=== PATIENT | male | born 1950 | race African-American/Black ===

== ENCOUNTER 2017-08-09 16:04 | Emergency (ER) | payer MEDICARE, OTHER ==
[~2017-08-09] VITALS: Ht 180.3 cm; Wt 80.0 kg
[2017-08-09 16:10] VITALS: BP 162/87
[2017-08-09 17:46] LABS: BASOPHILS # (AUTO) 0.02 x10^3/uL (0-0.1); BASOPHILS % (AUTO) 0 % (0-1); EOSINOPHILS # (AUTO) 0.08 x10^3/uL (0-0.4); EOSINOPHILS % (AUTO) 1 % (1-7); LYMPHOCYTES # (AUTO) 1.95 x10^3/uL (1-3.4); LYMPHOCYTES % (AUTO) 33 % (22-44); MD NO; MEAN CORPUSCULAR HEMOGLOBIN 33.2 pg (27.5-34.5); MEAN CORPUSCULAR VOLUME 97.5 fL (81-97); MEAN PLATELET VOLUME 7.6 fL (7.4-10.4); MONOCYTES # (AUTO) 0.47 x10^3/uL (0.2-0.8); MONOCYTES % (AUTO) 8 % (2-9); NEUTROPHILS # (AUTO) 3.36 x10^3/uL (1.8-6.8); NEUTROPHILS % (AUTO) 57 % (42-75); PLATELET COUNT 213 x10^3/uL (130-400); RED BLOOD COUNT 4.08 x10^6/uL (4.38-5.82); RED CELL DISTRIBUTION WIDTH 13.3 % (9.4-14.8)
[2017-08-09 17:58] LABS: ALBUMIN 3.3 g/dL (3.4-5.0); ANION GAP 6 mmol/L (5-15); CALCIUM 8.6 mg/dL (8.5-10.1); CHLORIDE 108 mmol/L (98-107); CREATININE 1.14 mg/dL (0.7-1.3)
[2017-08-09 18:01] LABS: TROPONIN I < 0.015 ng/mL (0.000-0.045)
== END 2017-08-09 19:09 | disposition home or self-care (01) ==
LOC: ED 19:00
DX: S01.111A Laceration without foreign body of right eyelid and periocular area, initial encounter (principal); I10 Essential (primary) hypertension; G89.29 Other chronic pain; M54.9 Dorsalgia, unspecified; W05.0XXA Fall from non-moving wheelchair, initial encounter; Y93.89 Activity, other specified; Y92.89 Other specified places as the place of occurrence of the external cause; Y99.8 Other external cause status
CPT/HCPCS: 36415; 70450; 71045; 80048; 82040; 84484; 85025; 93005; 99285

== ENCOUNTER 2017-11-03 10:46 | Emergency (ER) | payer MEDICAID, OTHER ==
[~2017-11-03] VITALS: Ht 180.3 cm; Wt 91.9 kg
[2017-11-03 10:47] VITALS: BP 133/77
[2017-11-03] MEDS ORDERED: PROPARACAINE OPHTH 0.5%, 15ML ONE (11:09)
[2017-11-03] MEDS ORDERED: FLUORESCEIN OPHTHALMIC 1 MG STRIP ONE (11:09)
== END 2017-11-03 11:37 ==
LOC: ED 11:31
DX: H10.213 Acute toxic conjunctivitis, bilateral (principal); G89.29 Other chronic pain
CPT/HCPCS: 99283

== ENCOUNTER 2017-12-22 13:04 | Emergency (ER) | payer MEDICARE, OTHER ==
[~2017-12-22] VITALS: Ht 180.3 cm; Wt 89.0 kg
[2017-12-22] MEDS ORDERED: ASPIRIN 81 MG TABLET CHEW PO ONE (13:30)
[2017-12-22] MEDS ORDERED: PLEASE ENTER HEIGHT AND WEIGHT MC SCH (13:30)
[2017-12-22] MEDS ORDERED: AMLO10TA2 PO (13:34)
[2017-12-22] MEDS ORDERED: CYCL5TAB PO (13:34)
[2017-12-22] MEDS ORDERED: GABA600T2 PO (13:34)
[2017-12-22] MEDS ORDERED: ATEN25TA PO (13:34)
[2017-12-22 13:35] LABS: BASOPHILS # (AUTO) 0.02 x10^3/uL (0-0.1); BASOPHILS % (AUTO) 1 % (0-1); EOSINOPHILS # (AUTO) 0.14 x10^3/uL (0-0.4); EOSINOPHILS % (AUTO) 3 % (1-7); LYMPHOCYTES # (AUTO) 1.64 x10^3/uL (1-3.4); LYMPHOCYTES % (AUTO) 34 % (22-44); MD NO; MEAN CORPUSCULAR HEMOGLOBIN 33.4 pg (27.5-34.5); MEAN CORPUSCULAR HGB CONC 34.5 g/dL (33.2-36.2); MEAN CORPUSCULAR VOLUME 96.9 fL (81-97); MONOCYTES # (AUTO) 0.41 x10^3/uL (0.2-0.8); MONOCYTES % (AUTO) 9 % (2-9); NEUTROPHILS # (AUTO) 2.66 x10^3/uL (1.8-6.8); NEUTROPHILS % (AUTO) 55 % (42-75); PLATELET COUNT 252 x10^3/uL (130-400); RED BLOOD COUNT 4.16 x10^6/uL (4.38-5.82); RED CELL DISTRIBUTION WIDTH 13.6 % (9.4-14.8)
[2017-12-22] MEDS ORDERED: ASPIRIN 81 MG TABLET CHEW ONE (13:35)
[2017-12-22 13:44] LABS: ALANINE AMINOTRANSFERASE 37 U/L (12-78); ALBUMIN 3.5 g/dL (3.4-5.0); ANION GAP 6 mmol/L (5-15); CALCIUM 8.2 mg/dL (8.5-10.1); CHLORIDE 111 mmol/L (98-107); CREATININE 1.07 mg/dL (0.7-1.3)
[2017-12-22 13:48] LABS: ALKALINE PHOSPHATASE 98 U/L (45-117); BILIRUBIN,TOTAL 0.3 mg/dL (0.2-1.0); TOTAL PROTEIN 7.3 g/dL (6.4-8.2); TROPONIN I < 0.015 ng/mL (0.000-0.045)
[2017-12-22 13:59] LABS: FREE T4 (FREE THYROXINE) 0.95 ng/dL (0.76-1.46); THYROID STIMULATING HORMONE 1.1 mIU/L (0.358-3.740)
[2017-12-22 14:02] LABS: CULTURE INDICATED? YES; MICROSCOPIC AUTO
[2017-12-22 14:38] VITALS: BP 129/86
== END 2017-12-22 15:01 | disposition home or self-care (01) ==
LOC: ED 14:55
DX: N30.01 Acute cystitis with hematuria (principal); R06.00 Dyspnea, unspecified; R53.1 Weakness; I10 Essential (primary) hypertension
CPT/HCPCS: 36415; 71045; 80053; 81001; 83880; 84439; 84443; 84484; 85025; 87086; 93005; 99285

== ENCOUNTER 2018-02-05 13:27 | Emergency (ER) | payer MEDICARE, MEDICAID ==
[~2018-02-05] VITALS: Ht 180.3 cm; Wt 90.0 kg
[~2018-02-05 13:27] MED LIST: AMLO10TA2 PO; ATEN25TA PO; CYCL5TAB PO; GABA600T2 PO
[2018-02-05] MEDS ORDERED: HYDROcodone/APAP 5/325 TABLET ONE ×2 (13:39→15:15)
[2018-02-05] MEDS ORDERED: HYDROcodone/APAP 5/325 TABLET PO ONE ×2 (14:00→15:30)
[2018-02-05 15:18] VITALS: BP 133/82
== END 2018-02-05 15:36 | disposition home or self-care (01) ==
LOC: ED 14:43
DX: S16.1XXA Strain of muscle, fascia and tendon at neck level, initial encounter (principal); S39.012A Strain of muscle, fascia and tendon of lower back, initial encounter; M48.061 Spinal stenosis, lumbar region without neurogenic claudication; M51.36 Other intervertebral disc degeneration, lumbar region; M47.9 Spondylosis, unspecified; G89.11 Acute pain due to trauma; W19.XXXA Unspecified fall, initial encounter; Y93.89 Activity, other specified; Y99.8 Other external cause status; Y92.89 Other specified places as the place of occurrence of the external cause
CPT/HCPCS: 72110; 72125; 99284

== ENCOUNTER 2018-04-03 12:51 | Inpatient (IN) | payer MEDICARE, MEDICAID ==
[~2018-04-03] VITALS: Ht 177.8 cm; Wt 94.4 kg
[~2018-04-03 12:51] MED LIST changes: -AMLO10TA2 PO; +AMLO10TA6 PO
[2018-04-03 13:54] LABS: BASOPHILS # (AUTO) 0.03 x10^3/uL (0-0.1); BASOPHILS % (AUTO) 1 % (0-1); EOSINOPHILS % (AUTO) 2 % (1-7); LYMPHOCYTES # (AUTO) 1.79 x10^3/uL (1-3.4); LYMPHOCYTES % (AUTO) 38 % (22-44); MD NO; MEAN CORPUSCULAR HEMOGLOBIN 33.2 pg (27.5-34.5); MEAN CORPUSCULAR HGB CONC 34.4 g/dL (33.2-36.2); MEAN CORPUSCULAR VOLUME 96.6 fL (81-97); MEAN PLATELET VOLUME 8.2 fL (7.4-10.4); MONOCYTES # (AUTO) 0.43 x10^3/uL (0.2-0.8); MONOCYTES % (AUTO) 9 % (2-9); NEUTROPHILS # (AUTO) 2.37 x10^3/uL (1.8-6.8); NEUTROPHILS % (AUTO) 50 % (42-75); PLATELET COUNT 229 x10^3/uL (130-400); RED BLOOD COUNT 4.11 x10^6/uL (4.38-5.82); RED CELL DISTRIBUTION WIDTH 13.5 % (9.4-14.8)
[2018-04-03 14:03] LABS: INTERNATIONAL NORMALIZED RATIO 1.23 (0.93-1.1); PROTHROMBIN TIME 12.7 Seconds (9.6-11.5)
[2018-04-03 14:41] LABS: CALCIUM 8.3 mg/dL (8.5-10.1); CHLORIDE 110 mmol/L (98-107)
[2018-04-03 14:45] LABS: ALANINE AMINOTRANSFERASE 32 U/L (12-78); ALBUMIN 3.2 g/dL (3.4-5.0); ANION GAP 6 mmol/L (5-15); CREATININE 1.05 mg/dL (0.7-1.3)
[2018-04-03] MEDS ORDERED: ACETAMINOPHEN 500 MG TABLET ONE (14:48)
[2018-04-03 14:49] LABS: ALKALINE PHOSPHATASE 98 U/L (45-117); BILIRUBIN,TOTAL 0.4 mg/dL (0.2-1.0); TROPONIN I < 0.015 ng/mL (0.000-0.045)
[2018-04-03] MEDS ORDERED: ACETAMINOPHEN 500 MG TABLET PO ONE (15:00)
[2018-04-03] MEDS ORDERED: CLOPIDOGREL 75 MG TABLET ONE (15:14)
[2018-04-03 15:19] LABS: CULTURE INDICATED? YES; MICROSCOPIC INDICATED
[2018-04-03] MEDS ORDERED: ACETAMINOPHEN 325 MG TABLET PO PRN (15:30)
[2018-04-03] MEDS ORDERED: CLOPIDOGREL 75 MG TABLET PO ONE (15:30)
[2018-04-03] MEDS ORDERED: NITROGLYCERIN 0.4 MG BOTTLE (25 TABS) SL PRN (15:30)
[2018-04-03] MEDS ORDERED: ENALAPRILAT 1.25 MG/ML, 2ML IVPush PRN (15:30)
[2018-04-03] MEDS ORDERED: CEFTRIAXONE 1,000 MG in DEXTROSE 5% 50 ML IV SCH (16:00)
[2018-04-03 16:19] LABS: CHOLESTEROL, TOTAL 184 mg/dL (140-239); TRIGLYCERIDES 118 mg/dL (50-200); VLDL CHOLESTEROL 24 mg/dL (0-25)
[2018-04-03 16:22] LABS: CHOL/HDL RATIO 4.4; HDL CHOL % 23 % (26-37); HDL CHOLESTEROL (DIRECT) 42 mg/dL (40-60); LDL CHOLESTEROL,CALCULATED 118 mg/dL (54-169); LDL/HDL RATIO 2.8 (0.5-3.0); TROPONIN I < 0.015 ng/mL (0.000-0.045)
[2018-04-03 16:23] VITALS: BP 145/91
[2018-04-03] MEDS: ENOXAPARIN 40 MG/0.4 ML SQ SCH (17:03)
[2018-04-03] MEDS: LIDODERM 5% PATCH TD PRN ×2 (17:07→20:48)
[2018-04-03 17:50] LABS: FOLATE LEVEL 19.2 ng/mL (3.1-17.5)
[2018-04-03 20:00] VITALS: BP 160/84
[2018-04-03] MEDS: ATENOLOL 25 MG TABLET PO SCH (20:48)
[2018-04-03] MEDS: FAMOTIDINE 20 MG TABLET PO SCH (20:48)
[2018-04-03 21:28] LABS: TROPONIN I < 0.015 ng/mL (0.000-0.045)
[2018-04-04 02:00] VITALS: BP 146/80
[2018-04-04] MEDS: ASPIRIN 325 MG TABLET EC PO SCH (05:46)
[2018-04-04 05:56] LABS: BASOPHILS # (AUTO) 0.03 x10^3/uL (0-0.1); BASOPHILS % (AUTO) 1 % (0-1); EOSINOPHILS # (AUTO) 0.08 x10^3/uL (0-0.4); EOSINOPHILS % (AUTO) 2 % (1-7); LYMPHOCYTES # (AUTO) 1.75 x10^3/uL (1-3.4); LYMPHOCYTES % (AUTO) 39 % (22-44); MD NO; MEAN CORPUSCULAR HEMOGLOBIN 33.2 pg (27.5-34.5); MEAN CORPUSCULAR HGB CONC 34.1 g/dL (33.2-36.2); MEAN CORPUSCULAR VOLUME 97.3 fL (81-97); MEAN PLATELET VOLUME 8.4 fL (7.4-10.4); MONOCYTES # (AUTO) 0.49 x10^3/uL (0.2-0.8); MONOCYTES % (AUTO) 11 % (2-9); NEUTROPHILS # (AUTO) 2.18 x10^3/uL (1.8-6.8); NEUTROPHILS % (AUTO) 48 % (42-75); PLATELET COUNT 230 x10^3/uL (130-400); RED CELL DISTRIBUTION WIDTH 13.1 % (9.4-14.8)
[2018-04-04 06:10] LABS: CHLORIDE 110 mmol/L (98-107)
[2018-04-04 06:16] LABS: ANION GAP 6 mmol/L (5-15); CALCIUM 8.3 mg/dL (8.5-10.1); CREATININE 1.13 mg/dL (0.7-1.3)
[2018-04-04 07:32] VITALS: BP 137/68
[2018-04-04] MEDS: CALCIUM CITRATE 950 MG TABLET PO SCH (08:17)
[2018-04-04] MEDS: AMLODIPINE 10 MG TAB PO SCH (08:17)
[2018-04-04] MEDS: MULTIVITAMIN 1 TABLET PO SCH (08:17)
[2018-04-04] MEDS: FAMOTIDINE 20 MG TABLET PO SCH ×2 (08:17→20:52)
[2018-04-04] MEDS: ATENOLOL 25 MG TABLET PO SCH ×2 (10:36→20:52)
[2018-04-04] MEDS: LIDODERM 5% PATCH TD PRN ×2 (10:39→22:19)
[2018-04-04] MEDS ORDERED: POTASSIUM CHLORIDE 20 MEQ TAB.ER.PRT PO ONE (12:30)
[2018-04-04] MEDS ORDERED: IRON DEXTRAN IV PER PHARMACY IV PRN (12:30)
[2018-04-04] MEDS ORDERED: IRON SUCROSE COMPLEX 100MG/5ML IV ONE (12:30)
[2018-04-04 12:47] VITALS: BP 135/81
[2018-04-04] MEDS ORDERED: POLYETHYLENE GLYCOL 17 GM PACKET NG ONE (13:30)
[2018-04-04] MEDS: ENOXAPARIN 40 MG/0.4 ML SQ SCH (17:20)
[2018-04-04] MEDS ORDERED: CEFTRIAXONE 1,000 MG in SODIUM CHLORIDE 0.9% 50 ML IV SCH (19:00)
[2018-04-04 20:00] VITALS: BP 146/79
[2018-04-05 02:00] VITALS: BP 126/76
[2018-04-05] MEDS: ASPIRIN 325 MG TABLET EC PO SCH (06:13)
[2018-04-05 06:26] LABS: BASOPHILS # (AUTO) 0.03 x10^3/uL (0-0.1); BASOPHILS % (AUTO) 1 % (0-1); EOSINOPHILS % (AUTO) 2 % (1-7); LYMPHOCYTES # (AUTO) 1.89 x10^3/uL (1-3.4); LYMPHOCYTES % (AUTO) 34 % (22-44); MD NO; MEAN CORPUSCULAR HEMOGLOBIN 33.6 pg (27.5-34.5); MEAN CORPUSCULAR HGB CONC 34.5 g/dL (33.2-36.2); MEAN CORPUSCULAR VOLUME 97.3 fL (81-97); MEAN PLATELET VOLUME 8.4 fL (7.4-10.4); MONOCYTES # (AUTO) 0.66 x10^3/uL (0.2-0.8); MONOCYTES % (AUTO) 12 % (2-9); NEUTROPHILS # (AUTO) 2.88 x10^3/uL (1.8-6.8); NEUTROPHILS % (AUTO) 52 % (42-75); PLATELET COUNT 230 x10^3/uL (130-400); RED BLOOD COUNT 4.29 x10^6/uL (4.38-5.82); RED CELL DISTRIBUTION WIDTH 13.4 % (9.4-14.8)
[2018-04-05 06:31] LABS: ANION GAP 6 mmol/L (5-15); CALCIUM 8.5 mg/dL (8.5-10.1); CHLORIDE 111 mmol/L (98-107); CREATININE 1.13 mg/dL (0.7-1.3)
[2018-04-05 07:00] VITALS: BP 131/78
[2018-04-05] MEDS ORDERED: FERROUS SULFATE 325 MG TABLET PO SCH (08:00)
[2018-04-05] MEDS ORDERED: LIDO700A20 TD (08:09)
[2018-04-05] MEDS ORDERED: CIPR500T87 PO (08:09)
[2018-04-05] MEDS ORDERED: MULT-484 PO (08:09)
[2018-04-05] MEDS: AMLODIPINE 10 MG TAB PO SCH (08:23)
[2018-04-05] MEDS: MULTIVITAMIN 1 TABLET PO SCH (08:23)
[2018-04-05] MEDS: FAMOTIDINE 20 MG TABLET PO SCH (08:23)
[2018-04-05] MEDS: CALCIUM CITRATE 950 MG TABLET PO SCH (08:23)
[2018-04-05] MEDS: ATENOLOL 25 MG TABLET PO SCH (08:24)
== END 2018-04-05 11:51 | disposition home or self-care (01) | DRG 206 ==
LOC: ED 13:10 → INTOOBSV 15:08 → EDIP 15:08 → OBSVTOIN 15:08 → 5SO 16:04 → DCLOUNGE 04-05 11:23
PROVIDERS: ADMIT Hospitalist; ATTEND Hospitalist
DX: M94.0 Chondrocostal junction syndrome [Tietze] (principal); N39.0 Urinary tract infection, site not specified; D50.9 Iron deficiency anemia, unspecified; M54.9 Dorsalgia, unspecified; R82.71 Bacteriuria; G89.29 Other chronic pain; R74.0 Nonspecific elevation of levels of transaminase and lactic acid dehydrogenase [LDH]; E83.51 Hypocalcemia; E87.6 Hypokalemia; I10 Essential (primary) hypertension; Z80.8 Family history of malignant neoplasm of other organs or systems; Z87.440 Personal history of urinary (tract) infections; Z88.0 Allergy status to penicillin; Z88.8 Allergy status to other drugs, medicaments and biological substances; R32 Unspecified urinary incontinence
CPT/HCPCS: 36415; 71045; 80048; 80053; 80061; 81001; 82607; 82746; 83036; 83540; 83550; 83690; 83735; 84100; 84484; 85025; 85610; 85730; 87040; 87086; 93005; 93306; 99285; G0378; J0696; J1650; J1756

== ENCOUNTER 2018-04-11 16:41 | Emergency (ER) | payer MEDICARE, MEDICAID ==
[~2018-04-11] VITALS: Ht 177.8 cm; Wt 86.4 kg
[~2018-04-11 16:41] MED LIST changes: +CIPR500T87 PO; +LIDO700A20 TD; +MULT-484 PO
[2018-04-11] MEDS ORDERED: ASPIRIN 81 MG TABLET CHEW ONE (17:09)
[2018-04-11] MEDS ORDERED: ASPIRIN 81 MG TABLET CHEW PO ONE (17:30)
[2018-04-11 17:48] LABS: ALBUMIN 3.5 g/dL (3.4-5.0); CALCIUM 8.5 mg/dL (8.5-10.1); CREATININE 1.26 mg/dL (0.7-1.3)
[2018-04-11 17:53] LABS: TROPONIN I < 0.015 ng/mL (0.000-0.045)
[2018-04-11 17:56] LABS: ANION GAP 7 mmol/L (5-15); CHLORIDE 112 mmol/L (98-107)
[2018-04-11 18:08] LABS: BASOPHILS # (AUTO) 0.03 x10^3/uL (0-0.1); BASOPHILS % (AUTO) 1 % (0-1); EOSINOPHILS # (AUTO) 0.07 x10^3/uL (0-0.4); EOSINOPHILS % (AUTO) 1 % (1-7); LYMPHOCYTES # (AUTO) 1.84 x10^3/uL (1-3.4); LYMPHOCYTES % (AUTO) 32 % (22-44); MD NO; MEAN CORPUSCULAR HEMOGLOBIN 33.9 pg (27.5-34.5); MEAN CORPUSCULAR HGB CONC 34.6 g/dL (33.2-36.2); MEAN CORPUSCULAR VOLUME 97.8 fL (81-97); MEAN PLATELET VOLUME 8.6 fL (7.4-10.4); MONOCYTES % (AUTO) 12 % (2-9); NEUTROPHILS # (AUTO) 3.11 x10^3/uL (1.8-6.8); NEUTROPHILS % (AUTO) 54 % (42-75); PLATELET COUNT 245 x10^3/uL (130-400); RED BLOOD COUNT 4.09 x10^6/uL (4.38-5.82); RED CELL DISTRIBUTION WIDTH 13.1 % (9.4-14.8)
[2018-04-11] MEDS ORDERED: ACETAMINOPHEN 325 MG TABLET PO ONE (18:30)
[2018-04-11] MEDS ORDERED: ACETAMINOPHEN 325 MG TABLET ONE (18:47)
[2018-04-11] MEDS ORDERED: LIDODERM 5% PATCH TD ONE (20:00)
[2018-04-11] MEDS ORDERED: OMNIPAQUE 350 MG/ML, 100ML BOTTLE ONE (20:45)
[2018-04-11 20:54] VITALS: BP 146/82
[2018-04-11 21:12] LABS: TROPONIN I < 0.015 ng/mL (0.000-0.045)
== END 2018-04-11 21:50 | disposition home or self-care (01) ==
LOC: ED 20:49
DX: G89.29 Other chronic pain (principal); R07.89 Other chest pain; M54.5 Low back pain; I10 Essential (primary) hypertension
CPT/HCPCS: 36415; 71046; 71275; 80048; 82040; 83880; 84484; 85025; 85379; 93005; 99285; Q9967

== ENCOUNTER 2018-04-20 15:36 | Emergency (ER) | payer MEDICAID, MEDICARE ==
[~2018-04-20] VITALS: Ht 177.8 cm; Wt 93.6 kg
[2018-04-20 15:41] VITALS: BP 149/83
[2018-04-20] MEDS ORDERED: ALBUTEROL/IPRATROPIUM 2.5MG/0.5MG, 3 ML NPPB SCH (16:00)
[2018-04-20 16:31] LABS: BASOPHILS % (AUTO) 0 % (0-1); EOSINOPHILS # (AUTO) 0.07 x10^3/uL (0-0.4); EOSINOPHILS % (AUTO) 1 % (1-7); LYMPHOCYTES # (AUTO) 0.63 x10^3/uL (1-3.4); LYMPHOCYTES % (AUTO) 9 % (22-44); MD NO; MEAN CORPUSCULAR HEMOGLOBIN 33.7 pg (27.5-34.5); MEAN CORPUSCULAR HGB CONC 34.8 g/dL (33.2-36.2); MEAN CORPUSCULAR VOLUME 96.9 fL (81-97); MEAN PLATELET VOLUME 8.1 fL (7.4-10.4); MONOCYTES # (AUTO) 0.57 x10^3/uL (0.2-0.8); MONOCYTES % (AUTO) 8 % (2-9); NEUTROPHILS # (AUTO) 5.66 x10^3/uL (1.8-6.8); NEUTROPHILS % (AUTO) 82 % (42-75); PLATELET COUNT 268 x10^3/uL (130-400); RED BLOOD COUNT 4.14 x10^6/uL (4.38-5.82); RED CELL DISTRIBUTION WIDTH 13.6 % (9.4-14.8)
[2018-04-20 16:37] LABS: ALANINE AMINOTRANSFERASE 36 U/L (12-78); ALBUMIN 3.5 g/dL (3.4-5.0); ANION GAP 6 mmol/L (5-15); CALCIUM 8.6 mg/dL (8.5-10.1); CHLORIDE 110 mmol/L (98-107); CREATININE 1.29 mg/dL (0.7-1.3)
[2018-04-20 16:42] LABS: ALKALINE PHOSPHATASE 99 U/L (45-117); BILIRUBIN,TOTAL 0.5 mg/dL (0.2-1.0); TOTAL PROTEIN 7.4 g/dL (6.4-8.2); TROPONIN I < 0.015 ng/mL (0.000-0.045)
[2018-04-20] MEDS ORDERED: ALBUTEROL/IPRATROPIUM 2.5MG/0.5MG, 3 ML ONE ×2 (16:48)
[2018-04-20] MEDS ORDERED: HYDROcodone/APAP 5/325 TABLET ONE (17:08)
[2018-04-20] MEDS ORDERED: HYDROcodone/APAP 5/325 TABLET PO ONE (17:30)
== END 2018-04-20 17:50 | disposition home or self-care (01) ==
LOC: ED 17:44
DX: J45.909 Unspecified asthma, uncomplicated (principal); E78.00 Pure hypercholesterolemia, unspecified; I10 Essential (primary) hypertension; G89.29 Other chronic pain
CPT/HCPCS: 36415; 71046; 80053; 83880; 84484; 85025; 93005; 94640; 99285

== ENCOUNTER 2018-04-24 18:50 | Emergency (ER) | payer MEDICAID, MEDICARE ==
[~2018-04-24] VITALS: Ht 177.8 cm; Wt 89.1 kg
[2018-04-24 19:51] LABS: BASOPHILS # (AUTO) 0.02 x10^3/uL (0-0.1); BASOPHILS % (AUTO) 1 % (0-1); EOSINOPHILS # (AUTO) 0.08 x10^3/uL (0-0.4); EOSINOPHILS % (AUTO) 2 % (1-7); LYMPHOCYTES # (AUTO) 1.96 x10^3/uL (1-3.4); LYMPHOCYTES % (AUTO) 39 % (22-44); MD NO; MEAN CORPUSCULAR HEMOGLOBIN 33.6 pg (27.5-34.5); MEAN CORPUSCULAR HGB CONC 34.3 g/dL (33.2-36.2); MEAN CORPUSCULAR VOLUME 97.9 fL (81-97); MEAN PLATELET VOLUME 7.7 fL (7.4-10.4); MONOCYTES # (AUTO) 0.59 x10^3/uL (0.2-0.8); MONOCYTES % (AUTO) 12 % (2-9); NEUTROPHILS # (AUTO) 2.36 x10^3/uL (1.8-6.8); NEUTROPHILS % (AUTO) 47 % (42-75); PLATELET COUNT 267 x10^3/uL (130-400); RED BLOOD COUNT 3.79 x10^6/uL (4.38-5.82); RED CELL DISTRIBUTION WIDTH 13.4 % (9.4-14.8)
[2018-04-24 19:56] LABS: ALBUMIN 3.2 g/dL (3.4-5.0); ANION GAP 8 mmol/L (5-15); CALCIUM 8.2 mg/dL (8.5-10.1); CHLORIDE 111 mmol/L (98-107); CREATININE 1.21 mg/dL (0.7-1.3)
[2018-04-24 19:59] LABS: TROPONIN I < 0.015 ng/mL (0.000-0.045)
[2018-04-24 20:05] VITALS: BP 153/92
[2018-04-24] MEDS ORDERED: ACETAMINOPHEN 500 MG TABLET ONE (20:52)
[2018-04-24] MEDS ORDERED: ACETAMINOPHEN 500 MG TABLET PO ONE (21:00)
== END 2018-04-24 21:03 | disposition home or self-care (01) ==
LOC: ED 20:45
DX: R07.2 Precordial pain (principal); J44.9 Chronic obstructive pulmonary disease, unspecified; E78.00 Pure hypercholesterolemia, unspecified; I10 Essential (primary) hypertension
CPT/HCPCS: 36415; 71045; 80048; 82040; 84484; 85025; 93005; 99285

== ENCOUNTER 2018-05-07 11:29 | Emergency (ER) | payer MEDICARE, MEDICAID ==
[~2018-05-07] VITALS: Ht 180.3 cm; Wt 95.0 kg
[2018-05-07] MEDS ORDERED: ATENOLOL 25 MG TABLET PO ONE (12:00)
[2018-05-07] MEDS ORDERED: AMLODIPINE 10 MG TAB PO SCH (12:00)
[2018-05-07 12:15] LABS: BASOPHILS # (AUTO) 0.06 x10^3/uL (0-0.1); BASOPHILS % (AUTO) 1 % (0-1); EOSINOPHILS # (AUTO) 0.07 x10^3/uL (0-0.4); EOSINOPHILS % (AUTO) 1 % (1-7); LYMPHOCYTES # (AUTO) 1.45 x10^3/uL (1-3.4); LYMPHOCYTES % (AUTO) 29 % (22-44); MD NO; MEAN CORPUSCULAR VOLUME 97.1 fL (81-97); MEAN PLATELET VOLUME 7.9 fL (7.4-10.4); MONOCYTES # (AUTO) 0.55 x10^3/uL (0.2-0.8); MONOCYTES % (AUTO) 11 % (2-9); NEUTROPHILS # (AUTO) 2.96 x10^3/uL (1.8-6.8); NEUTROPHILS % (AUTO) 58 % (42-75); PLATELET COUNT 258 x10^3/uL (130-400); RED BLOOD COUNT 4.22 x10^6/uL (4.38-5.82); RED CELL DISTRIBUTION WIDTH 13.4 % (9.4-14.8)
[2018-05-07 12:17] LABS: ALBUMIN 3.4 g/dL (3.4-5.0); ANION GAP 8 mmol/L (5-15); CALCIUM 8.3 mg/dL (8.5-10.1); CHLORIDE 110 mmol/L (98-107); CREATININE 1.11 mg/dL (0.7-1.3)
[2018-05-07] MEDS ORDERED: HYDROcodone/APAP 5/325 TABLET PO ONE (12:30)
[2018-05-07] MEDS ORDERED: ACETAMINOPHEN 500 MG TABLET PO ONE (12:30)
[2018-05-07] MEDS ORDERED: HYDROcodone/APAP 5/325 TABLET ONE (12:32)
[2018-05-07 12:55] VITALS: BP 142/77
== END 2018-05-07 12:57 | disposition home or self-care (01) ==
LOC: ED 12:13
DX: M79.642 Pain in left hand (principal); M79.671 Pain in right foot; J44.9 Chronic obstructive pulmonary disease, unspecified; I10 Essential (primary) hypertension; M54.9 Dorsalgia, unspecified; G89.29 Other chronic pain; E78.00 Pure hypercholesterolemia, unspecified
CPT/HCPCS: 36415; 80048; 82040; 85025; 93005; 99285

== ENCOUNTER 2018-05-26 19:43 | Emergency (ER) | payer MEDICARE, MEDICAID ==
[~2018-05-26] VITALS: Ht 177.8 cm; Wt 94.0 kg
[2018-05-26 20:51] LABS: BASOPHILS # (AUTO) 0.02 x10^3/uL (0-0.1); BASOPHILS % (AUTO) 1 % (0-1); EOSINOPHILS # (AUTO) 0.05 x10^3/uL (0-0.4); EOSINOPHILS % (AUTO) 1 % (1-7); LYMPHOCYTES # (AUTO) 1.44 x10^3/uL (1-3.4); LYMPHOCYTES % (AUTO) 31 % (22-44); MD NO; MEAN CORPUSCULAR HEMOGLOBIN 33.5 pg (27.5-34.5); MEAN CORPUSCULAR HGB CONC 34.5 g/dL (33.2-36.2); MEAN CORPUSCULAR VOLUME 97.3 fL (81-97); MEAN PLATELET VOLUME 8.1 fL (7.4-10.4); MONOCYTES # (AUTO) 0.64 x10^3/uL (0.2-0.8); MONOCYTES % (AUTO) 14 % (2-9); NEUTROPHILS # (AUTO) 2.48 x10^3/uL (1.8-6.8); NEUTROPHILS % (AUTO) 54 % (42-75); PLATELET COUNT 229 x10^3/uL (130-400); RED BLOOD COUNT 4.01 x10^6/uL (4.38-5.82)
[2018-05-26 20:56] LABS: ALANINE AMINOTRANSFERASE 33 U/L (12-78); ALBUMIN 3.4 g/dL (3.4-5.0); ANION GAP 9 mmol/L (5-15); CALCIUM 8.5 mg/dL (8.5-10.1); CHLORIDE 109 mmol/L (98-107); CREATININE 1.12 mg/dL (0.7-1.3)
[2018-05-26 21:00] LABS: ALKALINE PHOSPHATASE 86 U/L (45-117); BILIRUBIN,TOTAL 0.6 mg/dL (0.2-1.0); TOTAL PROTEIN 6.9 g/dL (6.4-8.2); TROPONIN I < 0.015 ng/mL (0.000-0.045)
[2018-05-26] MEDS ORDERED: ACETAMINOPHEN 500 MG TABLET ONE (22:00)
[2018-05-26] MEDS ORDERED: ACETAMINOPHEN 500 MG TABLET PO ONE (22:00)
[2018-05-26 22:08] VITALS: BP 141/76
== END 2018-05-26 22:34 | disposition home or self-care (01) ==
LOC: ED 20:49
DX: R07.89 Other chest pain (principal); J00 Acute nasopharyngitis [common cold]; E78.00 Pure hypercholesterolemia, unspecified; I10 Essential (primary) hypertension; E78.5 Hyperlipidemia, unspecified
CPT/HCPCS: 36415; 71046; 80053; 84484; 85025; 93005; 99285

== ENCOUNTER 2018-06-23 20:36 | Emergency (ER) | payer MEDICARE, MEDICAID ==
[~2018-06-23] VITALS: Ht 175.3 cm; Wt 72.8 kg
[2018-06-23 21:03] LABS: BASOPHILS # (AUTO) 0.05 x10^3/uL (0-0.1); BASOPHILS % (AUTO) 1 % (0-1); EOSINOPHILS # (AUTO) 0.07 x10^3/uL (0-0.4); EOSINOPHILS % (AUTO) 1 % (1-7); LYMPHOCYTES # (AUTO) 1.71 x10^3/uL (1-3.4); LYMPHOCYTES % (AUTO) 32 % (22-44); MD NO; MEAN CORPUSCULAR HEMOGLOBIN 33.5 pg (27.5-34.5); MEAN CORPUSCULAR HGB CONC 34.4 g/dL (33.2-36.2); MEAN CORPUSCULAR VOLUME 97.3 fL (81-97); MEAN PLATELET VOLUME 8.2 fL (7.4-10.4); MONOCYTES # (AUTO) 0.57 x10^3/uL (0.2-0.8); MONOCYTES % (AUTO) 11 % (2-9); NEUTROPHILS # (AUTO) 3.02 x10^3/uL (1.8-6.8); NEUTROPHILS % (AUTO) 56 % (42-75); PLATELET COUNT 239 x10^3/uL (130-400); RED BLOOD COUNT 3.91 x10^6/uL (4.38-5.82); RED CELL DISTRIBUTION WIDTH 13.6 % (9.4-14.8)
[2018-06-23 21:15] LABS: ALBUMIN 3.1 g/dL (3.4-5.0); ANION GAP 3 mmol/L (5-15); CHLORIDE 114 mmol/L (98-107); CREATININE 1.36 mg/dL (0.7-1.3)
[2018-06-23 21:19] LABS: TROPONIN I < 0.015 ng/mL (0.000-0.045)
[2018-06-23 21:37] VITALS: BP 125/65
== END 2018-06-23 22:09 | disposition home or self-care (01) ==
LOC: ED 22:07
DX: R07.89 Other chest pain (principal); J06.9 Acute upper respiratory infection, unspecified; E78.5 Hyperlipidemia, unspecified; E78.00 Pure hypercholesterolemia, unspecified; I10 Essential (primary) hypertension; J44.9 Chronic obstructive pulmonary disease, unspecified
CPT/HCPCS: 36415; 71045; 80048; 82040; 83880; 84484; 85025; 93005; 99284

== ENCOUNTER 2018-06-30 13:48 | Emergency (ER) | payer MEDICARE, MEDICAID ==
[~2018-06-30] VITALS: Ht 177.8 cm; Wt 93.6 kg
[2018-06-30 14:30] LABS: BASOPHILS # (AUTO) 0.02 x10^3/uL (0-0.1); BASOPHILS % (AUTO) 0 % (0-1); EOSINOPHILS # (AUTO) 0.04 x10^3/uL (0-0.4); EOSINOPHILS % (AUTO) 1 % (1-7); LYMPHOCYTES # (AUTO) 1.31 x10^3/uL (1-3.4); LYMPHOCYTES % (AUTO) 30 % (22-44); MD NO; MEAN CORPUSCULAR HEMOGLOBIN 31.8 pg (27.5-34.5); MEAN CORPUSCULAR HGB CONC 32.9 g/dL (33.2-36.2); MEAN CORPUSCULAR VOLUME 96.7 fL (81-97); MEAN PLATELET VOLUME 8.2 fL (7.4-10.4); MONOCYTES # (AUTO) 0.35 x10^3/uL (0.2-0.8); MONOCYTES % (AUTO) 8 % (2-9); NEUTROPHILS # (AUTO) 2.69 x10^3/uL (1.8-6.8); NEUTROPHILS % (AUTO) 61 % (42-75); PLATELET COUNT 230 x10^3/uL (130-400); RED BLOOD COUNT 3.87 x10^6/uL (4.38-5.82); RED CELL DISTRIBUTION WIDTH 13.1 % (9.4-14.8)
[2018-06-30 14:38] LABS: ALBUMIN 3.2 g/dL (3.4-5.0); ANION GAP 8 mmol/L (5-15); CALCIUM 8.4 mg/dL (8.5-10.1); CHLORIDE 112 mmol/L (98-107); CREATININE 1.61 mg/dL (0.7-1.3)
[2018-06-30 15:01] VITALS: BP 149/87
== END 2018-06-30 16:36 | disposition home or self-care (01) ==
LOC: ED 13:53
DX: R19.7 Diarrhea, unspecified (principal)
CPT/HCPCS: 36415; 71045; 74018; 80048; 82040; 85025; 99284

== ENCOUNTER 2018-07-24 19:28 | Emergency (ER) | payer MEDICARE, MEDICAID ==
[~2018-07-24] VITALS: Ht 180.3 cm; Wt 93.6 kg
[2018-07-24] MEDS ORDERED: ALBUTEROL SULFATE 2.5 MG/3 ML NPPB ONE (20:00)
[2018-07-24 20:16] LABS: BASOPHILS # (AUTO) 0.02 x10^3/uL (0-0.1); BASOPHILS % (AUTO) 0 % (0-1); EOSINOPHILS # (AUTO) 0.08 x10^3/uL (0-0.4); EOSINOPHILS % (AUTO) 1 % (1-7); LYMPHOCYTES # (AUTO) 1.68 x10^3/uL (1-3.4); LYMPHOCYTES % (AUTO) 28 % (22-44); MD NO; MEAN CORPUSCULAR HEMOGLOBIN 32.6 pg (27.5-34.5); MEAN CORPUSCULAR HGB CONC 33.3 g/dL (33.2-36.2); MEAN CORPUSCULAR VOLUME 97.9 fL (81-97); MONOCYTES # (AUTO) 0.57 x10^3/uL (0.2-0.8); MONOCYTES % (AUTO) 9 % (2-9); NEUTROPHILS # (AUTO) 3.75 x10^3/uL (1.8-6.8); NEUTROPHILS % (AUTO) 61 % (42-75); PLATELET COUNT 252 x10^3/uL (130-400); RED BLOOD COUNT 4.37 x10^6/uL (4.38-5.82); RED CELL DISTRIBUTION WIDTH 14.1 % (9.4-14.8)
[2018-07-24 20:25] LABS: ALANINE AMINOTRANSFERASE 45 U/L (12-78); ALBUMIN 3.6 g/dL (3.4-5.0); ANION GAP 7 mmol/L (5-15); CHLORIDE 112 mmol/L (98-107); CREATININE 1.33 mg/dL (0.7-1.3)
[2018-07-24 20:30] LABS: ALKALINE PHOSPHATASE 97 U/L (45-117); BILIRUBIN,TOTAL 0.4 mg/dL (0.2-1.0); TOTAL PROTEIN 7.3 g/dL (6.4-8.2)
[2018-07-24 20:41] LABS: TROPONIN I < 0.015 ng/mL (0.000-0.045)
[2018-07-24] MEDS ORDERED: OXYcodone/APAP 5/325MG TABLET ONE (21:46)
[2018-07-24] MEDS ORDERED: OXYcodone/APAP 5/325MG TABLET PO ONE (22:00)
[2018-07-24 22:02] VITALS: BP 124/61
== END 2018-07-24 22:07 | disposition home or self-care (01) ==
LOC: ED 20:03
DX: J44.1 Chronic obstructive pulmonary disease with (acute) exacerbation (principal); R05 Cough; M25.531 Pain in right wrist; E78.5 Hyperlipidemia, unspecified; E78.00 Pure hypercholesterolemia, unspecified; M54.9 Dorsalgia, unspecified; G89.29 Other chronic pain; I11.0 Hypertensive heart disease with heart failure; I50.9 Heart failure, unspecified; Z87.891 Personal history of nicotine dependence; W10.9XXA Fall (on) (from) unspecified stairs and steps, initial encounter; Y93.89 Activity, other specified; Y92.89 Other specified places as the place of occurrence of the external cause; Y99.8 Other external cause status
CPT/HCPCS: 36415; 71045; 73110; 80053; 83880; 84484; 85025; 93005; 94640; 99284; J7613

== ENCOUNTER 2018-10-03 12:25 | Emergency (ER) | payer MEDICARE, MEDICAID ==
[~2018-10-03] VITALS: Ht 180.3 cm; Wt 206.0 kg
[~2018-10-03 12:25] MED LIST changes: -AMLO10TA6 PO; +AMLO10TA8 PO; -GABA600T2 PO; +GABA600T7 PO
--- NOTE | 2018-10-03 12:35 | NUR ---
FRANCOIS MENDOZA FROM [facility] SPINE PAIN MANGEMENT. PER KELLY PT COLLASPED AFTER BEING TOLD HIS PAIN MEDICATIONS COULD NOT BE FILLED TODAY. PT COMPLAINING OF 9/10 LBP WHICH IS CHRONIC. ALSO STATES WEAKNESS. PT ABLE TO MOVE WITH NO ASSITANCE IN GURNEY. MILD AMOUNT OF DISTRESS AND DISCOMFORT NOTED. BREATHING REGULAR AND UNLABORED. AWAITING EVAL AND ORDERS. WILL CONTINUE TO MONITOR.
[2018-10-03] MEDS ORDERED: OXYcodone/APAP 5/325MG TABLET ONE (13:53)
[2018-10-03] MEDS ORDERED: OXYcodone/APAP 5/325MG TABLET PO ONE (14:00)
--- NOTE | 2018-10-03 14:30 | NUR ---
MODESTO RN: PT REQUESTED 10 PERCOCET INSTEAD OF RX FOR NAPROXEN WHICH PT IS ALLERGIC. RN DISCUSSED WITH VIJAYA JENNINGS AND PER DR JENNINGS, PT CAN TAKE OTC TYLENOL. PT TOLD RN HE WOULD NOT LEAVE UNTIL SHE GAVE HIM RX FOR PERCOCET AND A CAB VOUCHER. RN PROVIDED PT WITH DAY BUS PASS. PER SECURITY, HE WAS WITNESSED WALKING INTO ER W/O DIFFICULTY. PT WALKED TO DC DESK WITH WALKER, PT REQUESTED WALKER. NAD DISTRESS NOTED.
[2018-10-03 14:32] VITALS: BP 123/66
== END 2018-10-03 14:34 | disposition home or self-care (01) ==
LOC: ED 14:28
DX: G89.29 Other chronic pain (principal); M54.5 Low back pain; J44.9 Chronic obstructive pulmonary disease, unspecified; E78.00 Pure hypercholesterolemia, unspecified; E78.5 Hyperlipidemia, unspecified; I11.0 Hypertensive heart disease with heart failure; I50.9 Heart failure, unspecified
CPT/HCPCS: 99283

== ENCOUNTER 2018-10-06 09:34 | Emergency (ER) | payer MEDICARE, MEDICAID ==
[~2018-10-06] VITALS: Ht 180.3 cm; Wt 93.0 kg
--- NOTE | 2018-10-06 09:43 | NUR ---
PT BIB [facility] FOR GLF. PT TRIPPED OVER A RUG AND FELL FORWARD. PT HIT HEAD. DENIES LOC AND DIZZINESS. PT HAS AN ABRASION ON FOREHEAD. C/O RIGHT AND LEFT WRIST AND LOWER ARM PAIN. BP 172/106. PT IS ALERT, ORIENTED, WITH NAD. PT IS CONNECTED TO THE MONITOR. CALL LIGHT WITHIN REACH.
[2018-10-06] MEDS ORDERED: OXYcodone/APAP 5/325MG TABLET ONE (09:45)
[2018-10-06] MEDS ORDERED: OXYcodone/APAP 5/325MG TABLET PO ONE (10:00)
[2018-10-06] MEDS ORDERED: BACITRACIN ZINC OINT 500U/GM, 0.9 GM ONE (10:06)
--- NOTE | 2018-10-06 10:10 | NUR ---
PT TAKEN TO X RAY.
[2018-10-06 11:26] VITALS: BP 154/97
--- NOTE | 2018-10-06 11:26 | NUR ---
PT IS RESTING IN BED, WATCHING TV, RESPIRATIONS EQUAL AND NON LABORED. NAD. PT IS CONNECTED TO THE MONITOR. CALL LIGHT WITHIN REACH.
[2018-10-06] MEDS ORDERED: ACETAMINOPHEN 325 MG TABLET PO ONE (11:30)
[2018-10-06] MEDS ORDERED: ACETAMINOPHEN 325 MG TABLET ONE (11:31)
--- NOTE | 2018-10-06 12:08 | NUR ---
TASK RN NOTE: REPORT RECEIVED FROM MARY VELÁSQUEZ. PT GIVEN DC INSTRUCTIONS, PT GIVEN CAB VOUCHER. PT AMBULATORY WITH STEADY GAIT AT DC, UNASSISTED. NADN AT DC.
== END 2018-10-06 12:11 | disposition home or self-care (01) ==
LOC: ED 12:00
DX: S01.81XA Laceration without foreign body of other part of head, initial encounter (principal); S16.1XXA Strain of muscle, fascia and tendon at neck level, initial encounter; S43.402A Unspecified sprain of left shoulder joint, initial encounter; S43.401A Unspecified sprain of right shoulder joint, initial encounter; S50.12XA Contusion of left forearm, initial encounter; S50.11XA Contusion of right forearm, initial encounter; J44.9 Chronic obstructive pulmonary disease, unspecified; I50.9 Heart failure, unspecified; E78.5 Hyperlipidemia, unspecified; E78.00 Pure hypercholesterolemia, unspecified; W19.XXXA Unspecified fall, initial encounter; Y93.89 Activity, other specified; Y92.410 Unspecified street and highway as the place of occurrence of the external cause; Y99.8 Other external cause status
CPT/HCPCS: 72050; 99284

== ENCOUNTER 2018-12-17 13:14 | Emergency (ER) | payer MEDICARE, MEDICAID ==
[~2018-12-17] VITALS: Ht 180.3 cm; Wt 96.0 kg
[2018-12-17] MEDS ORDERED: SODIUM CHLORIDE FLUSH 10ML SYR IVF ONE (13:30)
[2018-12-17] MEDS ORDERED: MORPHINE SULFATE 4 MG/ML, 1ML IVPush PRN (13:30)
[2018-12-17] MEDS ORDERED: ASPIRIN 81 MG TABLET CHEW PO ONE (13:30)
[2018-12-17] MEDS ORDERED: ASPIRIN 81 MG TABLET CHEW ONE (13:37)
[2018-12-17] MEDS ORDERED: NITROGLYCERIN SINGLE TAB 0.4 MG SL ONE (13:37)
[2018-12-17] MEDS: NITROGLYCERIN SINGLE TAB 0.4 MG SL PRN ×2 (13:40→13:48)
--- NOTE | 2018-12-17 13:46 | NUR ---
TASK RN: 1ST DOSE NITRO GIVEN FOR 8/10 PAIN, PT REPORTING PAIN HAS DECREASED TO 6/10. SECOND DOSE TO BE GIVEN
[2018-12-17 13:48] VITALS: BP 116/73
[2018-12-17] MEDS ORDERED: PLEASE ENTER HEIGHT AND WEIGHT MC SCH (14:00)
[2018-12-17 14:03] LABS: ALANINE AMINOTRANSFERASE 32 U/L (12-78); ALBUMIN 3.4 g/dL (3.4-5.0); ANION GAP 11 mmol/L (5-15); CALCIUM 8.4 mg/dL (8.5-10.1); CHLORIDE 112 mmol/L (98-107); CREATININE 1.27 mg/dL (0.7-1.3)
--- NOTE | 2018-12-17 14:05 | NUR ---
second dose given of nitro by grisel currie. at this time pt pain decreased to a 3/10. pt refuses any more nitro.
[2018-12-17 14:07] LABS: ALKALINE PHOSPHATASE 110 U/L (45-117); BILIRUBIN,TOTAL 0.5 mg/dL (0.2-1.0); TOTAL PROTEIN 6.8 g/dL (6.4-8.2); TROPONIN I < 0.015 ng/mL (0.000-0.045)
[2018-12-17 14:14] LABS: MEAN CORPUSCULAR HEMOGLOBIN 32.6 pg (27.5-34.5); MEAN CORPUSCULAR HGB CONC 32.7 g/dL (33.2-36.2); MEAN CORPUSCULAR VOLUME 99.6 fL (81-97); MEAN PLATELET VOLUME 8.8 fL (7.4-10.4); PLATELET COUNT 204 x10^3/uL (130-400); RED BLOOD COUNT 4.26 x10^6/uL (4.38-5.82); RED CELL DISTRIBUTION WIDTH 13.1 % (9.4-14.8)
[2018-12-17 14:29] LABS: MD YES
[2018-12-17 14:35] LABS: BASOS#(MANUAL) 0.05 x10^3/uL (0-0.1); BASOS% (MANUAL) 1 % (0-1); EOS#(MANUAL) 0.22 x10^3/uL (0.0-0.4); EOS% (MANUAL) 4 % (1-7); LYMPH#(MANUAL) 1.62 x10^3/uL (1-3.4); LYMPHS% (MANUAL) 30 % (22-44); MONOS#(MANUAL) 0.38 x10^3/uL (0.3-2.7); MONOS% (MANUAL) 7 % (2-9); REACTIVE LYMPHS # (MANUAL) 0.49 x10^3/uL (0-0); REACTIVE LYMPHS % (MANUAL) 9 % (0-0); SEG#(MANUAL) 2.65 x10^3/uL (1.8-6.8); SEGS% (MANUAL) 49 % (42-75)
[2018-12-17 14:36] LABS: <PLATELET ESTIMATE> ADEQUATE; <PLT MORPHOLOGY> NORMAL PLT MORPH; <RBC MORPHOLOGY> NORMAL
== END 2018-12-17 15:50 | disposition home or self-care (01) ==
LOC: ED 13:59
DX: R07.89 Other chest pain (principal); R11.0 Nausea; J44.9 Chronic obstructive pulmonary disease, unspecified; I11.0 Hypertensive heart disease with heart failure; I50.9 Heart failure, unspecified; E78.00 Pure hypercholesterolemia, unspecified; E78.5 Hyperlipidemia, unspecified; G89.29 Other chronic pain
CPT/HCPCS: 36415; 71045; 80053; 83880; 84484; 85025; 93005; 99284

== ENCOUNTER 2019-08-07 09:00 | Emergency (ER) | payer MEDICARE, MEDICAID ==
[~2019-08-07] VITALS: Ht 170.2 cm; Wt 100.0 kg
--- NOTE | 2019-08-07 09:11 | NUR ---
BIB EMS C/O INCREASED WEAKNESS, SOB, AND DIFFUSE UPPER CHEST PAIN. 5/10 CONSTANT RADIATES UNDER LEFT ARM. PT TRANSFERED TO ED GURNEY STAND AND TRANSFER. PT WEAK AND AUDIBLE WHEEZING NOTED WITH ACTIVITY. BP, PULSE OX, ECG MONITORING PLACED. VSS. DR ZAPATA AT BEDSIDE, PT ASSESSMENT REV. AND ORDERS REC'D.
--- NOTE | 2019-08-07 09:14 | NUR ---
PT ARRIVED WITH LARGE KITCHEN KNIFE. KNIFE SURRENDERED TO SECURITY FOR SAFE KEEPING.
[2019-08-07 09:41] VITALS: BP 143/80
== END 2019-08-07 09:43 | disposition home or self-care (01) ==
LOC: ED 09:37
DX: J20.9 Acute bronchitis, unspecified (principal); R06.00 Dyspnea, unspecified; I10 Essential (primary) hypertension; J44.9 Chronic obstructive pulmonary disease, unspecified
CPT/HCPCS: 71045; 93005; 99283

== ENCOUNTER 2019-08-31 09:00 | Emergency (ER) | payer MEDICARE, MEDICAID ==
[~2019-08-31] VITALS: Ht 180.3 cm; Wt 97.0 kg
--- NOTE | 2019-08-31 09:12 | NUR ---
PATIENT BROUGHT IN BY KELLY FROM HOME FOR CHIEF COMPLAINT OF COUGH WITH INTERMITTENT CO AND INABLILTY TO PEE BECAUSE HE IS OUT OF PRESCRIPTIONS. VIJAYA SMIMONS AT [facility] [place] FOR EVALUATION
[2019-08-31] MEDS ORDERED: TAMS-11 PO (09:14)
--- NOTE | 2019-08-31 09:55 | NUR ---
REPORT RECEIEVED FROM MARY AMBROSIO. [facility]
[2019-08-31 10:10] LABS: MICROSCOPIC AUTO
[2019-08-31 10:12] LABS: CULTURE INDICATED? YES
[2019-08-31] MEDS ORDERED: TAMSULOSIN 0.4 MG CAP.ER.24H PO ONE (10:30)
[2019-08-31 10:34] LABS: ANION GAP 5 mmol/L (5-15); CALCIUM 8.5 mg/dL (8.5-10.1); CHLORIDE 111 mmol/L (98-107); CREATININE 1.13 mg/dL (0.7-1.3)
[2019-08-31 10:38] LABS: TROPONIN I < 0.015 ng/mL (0.000-0.045)
[2019-08-31 10:41] VITALS: BP 143/78
--- NOTE | 2019-08-31 10:42 | NUR ---
PT RESTING IN [facility]. NO DISTRESS NOTED.
[2019-08-31] MEDS ORDERED: POTASSIUM CHLORIDE 20 MEQ TAB.ER.PRT ONE (10:49)
[2019-08-31] MEDS ORDERED: TAMSULOSIN 0.4 MG CAP.ER.24H ONE (10:56)
[2019-08-31] MEDS ORDERED: POTASSIUM CHLORIDE 20 MEQ TAB.ER.PRT PO ONE (11:00)
== END 2019-08-31 11:14 | disposition home or self-care (01) ==
LOC: ED 10:08
DX: J44.9 Chronic obstructive pulmonary disease, unspecified (principal); N40.1 Benign prostatic hyperplasia with lower urinary tract symptoms; R33.8 Other retention of urine; E87.6 Hypokalemia; I11.0 Hypertensive heart disease with heart failure; I50.9 Heart failure, unspecified; Z72.9 Problem related to lifestyle, unspecified; G89.29 Other chronic pain; E78.5 Hyperlipidemia, unspecified; Z87.891 Personal history of nicotine dependence
CPT/HCPCS: 36415; 71045; 80048; 81001; 84484; 87077; 87086; 93005; 99284

== ENCOUNTER 2019-09-20 17:28 | Emergency (ER) | payer MEDICARE, MEDICAID ==
[~2019-09-20] VITALS: Ht 180.3 cm; Wt 98.2 kg
[~2019-09-20 17:28] MED LIST changes: +TAMS-11 PO
--- NOTE | 2019-09-20 18:11 | NUR ---
Pt BIB [facility] at 1740. Handoff report received. Pt resting in bed on monitor. waiting physician check. Pt urinated clear yellow. DELIO, WCRISSA.
--- NOTE | 2019-09-20 18:31 | NUR ---
Dr Lowe performing assessment on pt. Pt appears to be in NAD. discussed plan of care with pt. Awaiting xray and lab work. WCTM.
[2019-09-20] MEDS ORDERED: ALBU90AE2 INH (18:48)
[2019-09-20] MEDS ORDERED: POTA10TA31 PO (18:48)
[2019-09-20] MEDS ORDERED: NYST15CR33 TP (18:48)
--- NOTE | 2019-09-20 18:51 | NUR ---
bedside report to Natalee HERNANDEZ, pt care transferred at this time.
[2019-09-20 18:56] LABS: BASOPHILS # (AUTO) 0.02 x10^3/uL (0-0.1); BASOPHILS % (AUTO) 0 % (0-1); EOSINOPHILS # (AUTO) 0.06 x10^3/uL (0-0.4); EOSINOPHILS % (AUTO) 1 % (1-7); LYMPHOCYTES # (AUTO) 1.81 x10^3/uL (1-3.4); LYMPHOCYTES % (AUTO) 28 % (22-44); MD NO; MEAN CORPUSCULAR HEMOGLOBIN 31.3 pg (27.5-34.5); MEAN CORPUSCULAR HGB CONC 32.9 g/dL (33.2-36.2); MEAN CORPUSCULAR VOLUME 95.4 fL (81-97); MEAN PLATELET VOLUME 8.4 fL (7.4-10.4); MONOCYTES % (AUTO) 9 % (2-9); NEUTROPHILS # (AUTO) 3.94 x10^3/uL (1.8-6.8); NEUTROPHILS % (AUTO) 61 % (42-75); PLATELET COUNT 274 x10^3/uL (130-400); RED BLOOD COUNT 4.02 x10^6/uL (4.38-5.82); RED CELL DISTRIBUTION WIDTH 14.1 % (9.4-14.8)
[2019-09-20 19:00] LABS: ALBUMIN 3.1 g/dL (3.4-5.0); ANION GAP 6 mmol/L (5-15); CALCIUM 8.6 mg/dL (8.5-10.1); CHLORIDE 112 mmol/L (98-107); CREATININE 1.13 mg/dL (0.7-1.3)
[2019-09-20 19:11] LABS: TROPONIN I < 0.015 ng/mL (0.000-0.045)
--- NOTE | 2019-09-20 19:14 | NUR ---
PT RESTING ON LATISHA VEGA. PT REQUESTING PAIN MEDICATION AT THIS TIME, MD TO BE UPDATED
[2019-09-20 19:15] VITALS: BP 156/86
--- NOTE | 2019-09-20 19:18 | NUR ---
ALL RESULTS BACK AT THIS TIME CHART UP FOR RECHECK
[2019-09-20] MEDS ORDERED: ACETAMINOPHEN 500 MG TABLET ONE (19:59)
[2019-09-20] MEDS ORDERED: ACETAMINOPHEN 500 MG TABLET PO ONE (20:00)
--- NOTE | 2019-09-20 20:10 | NUR ---
PT REFUSING TYLENOL. UPDATED, PT DEMANDING HEMP VITAMINS PT INFORMED WE DO NOT HAVE THOSE IN HOSPITAL. PT CHANGING AND PREPARING FOR DISCHARGE
== END 2019-09-20 20:40 | disposition home or self-care (01) ==
LOC: ED 20:00
DX: R07.89 Other chest pain (principal); J44.9 Chronic obstructive pulmonary disease, unspecified; I11.0 Hypertensive heart disease with heart failure; I50.9 Heart failure, unspecified; E78.5 Hyperlipidemia, unspecified; G89.29 Other chronic pain; Z87.891 Personal history of nicotine dependence
CPT/HCPCS: 36415; 71045; 80048; 82040; 83880; 84484; 85025; 93005; 99285

== ENCOUNTER 2019-10-05 14:01 | Emergency (ER) | payer MEDICARE, MEDICAID ==
[~2019-10-05] VITALS: Ht 180.3 cm; Wt 92.0 kg
[~2019-10-05 14:01] MED LIST changes: +ALBU90AE2 INH; +NYST15CR33 TP; +POTA10TA31 PO
--- NOTE | 2019-10-05 14:47 | NUR ---
PT STATES HE FELL TWO DAYS AGO AND HIT HIS HEAD, STATES HE THEN SAT ON THE FLOOR AND WAS UNABLE TO GET UP, DENIES LOC, STERN, DIZZINESS. STATES HE IS HURTING "ALL OVER HIS BODY"
--- NOTE | 2019-10-05 15:14 | NUR ---
ERMD IN TO EVAL PT. PT NOW C/O COUGH AND CHEST DISCOMFORT. PT PLACED ON CARD MONITOR, BP, CONT PULSE OX
[2019-10-05 15:38] LABS: MEAN CORPUSCULAR HEMOGLOBIN 31.7 pg (27.5-34.5); MEAN CORPUSCULAR HGB CONC 33.1 g/dL (33.2-36.2); PLATELET COUNT 261 x10^3/uL (130-400); RED BLOOD COUNT 4.22 x10^6/uL (4.38-5.82); RED CELL DISTRIBUTION WIDTH 14.4 % (9.4-14.8)
[2019-10-05 15:42] LABS: ALANINE AMINOTRANSFERASE 24 U/L (12-78); ALBUMIN 3.3 g/dL (3.4-5.0); ANION GAP 7 mmol/L (5-15); CALCIUM 8.7 mg/dL (8.5-10.1); CHLORIDE 110 mmol/L (98-107)
[2019-10-05 15:47] LABS: ALKALINE PHOSPHATASE 106 U/L (45-117); BILIRUBIN,TOTAL 0.5 mg/dL (0.2-1.0); CREATININE 1.34 mg/dL (0.7-1.3); TOTAL PROTEIN 7.3 g/dL (6.4-8.2); TROPONIN I < 0.015 ng/mL (0.000-0.045)
[2019-10-05 17:11] LABS: BASOPHILS # (AUTO) 0.04 x10^3/uL (0-0.1); BASOPHILS % (AUTO) 1 % (0-1); EOSINOPHILS % (AUTO) 2 % (1-7); LYMPHOCYTES # (AUTO) 1.45 x10^3/uL (1-3.4); LYMPHOCYTES % (AUTO) 24 % (22-44); MD SCAN; MONOCYTES # (AUTO) 0.68 x10^3/uL (0.2-0.8); MONOCYTES % (AUTO) 11 % (2-9); NEUTROPHILS % (AUTO) 62 % (42-75)
[2019-10-05] MEDS ORDERED: METHOCARBAMOL 750 MG TABLET PO ONE (17:30)
[2019-10-05] MEDS ORDERED: METHOCARBAMOL 750 MG TABLET ONE (18:09)
--- NOTE | 2019-10-05 19:05 | NUR ---
PATIENT DISCHARGED WITH PRESCRIPTIONS AND INSTRUCTION. VERBALIZED UNDERSTANDING.WHEELED TO DISCHARGE AREA.
[2019-10-05 19:06] VITALS: BP 147/84
== END 2019-10-05 19:08 | disposition home or self-care (01) ==
LOC: ED 18:30
DX: J41.1 Mucopurulent chronic bronchitis (principal); Z76.0 Encounter for issue of repeat prescription; Z72.9 Problem related to lifestyle, unspecified; I10 Essential (primary) hypertension; J44.9 Chronic obstructive pulmonary disease, unspecified; E78.00 Pure hypercholesterolemia, unspecified; E78.5 Hyperlipidemia, unspecified; I51.9 Heart disease, unspecified; G89.29 Other chronic pain; R94.31 Abnormal electrocardiogram [ECG] [EKG]; Z79.899 Other long term (current) drug therapy
CPT/HCPCS: 36415; 71045; 80053; 80307; 84484; 85025; 93005; 99285

== ENCOUNTER 2019-10-06 06:40 | Emergency (ER) | payer MEDICARE, MEDICAID ==
[~2019-10-06] VITALS: Ht 180.3 cm; Wt 95.0 kg
--- NOTE | 2019-10-06 07:07 | NUR ---
REPAIR TECHNICIAN. PT TAKEN TO ROOM FROM LOBBY AT THIS TIME. PT STATES "I'M HERE FOR THE SAME THING YESTERDAY. I DIDN'T GET MY PRESCRIPTIONS FILLED. I COULDN'T." DELION/
--- NOTE | 2019-10-06 07:11 | NUR ---
BEDSIDE REPORT TO MARY PEDROZA.
[2019-10-06] MEDS ORDERED: DIAZEPAM 5 MG TABLET PO ONE (07:30)
--- NOTE | 2019-10-06 07:46 | NUR ---
PT TO IMAGING AT THIS TIME
[2019-10-06] MEDS ORDERED: DIAZEPAM 5 MG TABLET ONE (07:56)
--- NOTE | 2019-10-06 08:08 | NUR ---
PT PLACED ON ALL MONITORING EQUIP PER ER PROVIDER ORDER, PT MEDICATED PER SEP.
[2019-10-06 08:09] VITALS: BP 138/68
[2019-10-06 08:16] LABS: BASOPHILS # (AUTO) 0.03 x10^3/uL (0-0.1); BASOPHILS % (AUTO) 1 % (0-1); EOSINOPHILS # (AUTO) 0.09 x10^3/uL (0-0.4); EOSINOPHILS % (AUTO) 2 % (1-7); LYMPHOCYTES # (AUTO) 1.47 x10^3/uL (1-3.4); LYMPHOCYTES % (AUTO) 30 % (22-44); MD NO; MEAN CORPUSCULAR HEMOGLOBIN 31.5 pg (27.5-34.5); MEAN CORPUSCULAR HGB CONC 32.7 g/dL (33.2-36.2); MEAN CORPUSCULAR VOLUME 96.3 fL (81-97); MEAN PLATELET VOLUME 8.2 fL (7.4-10.4); MONOCYTES # (AUTO) 0.51 x10^3/uL (0.2-0.8); MONOCYTES % (AUTO) 10 % (2-9); NEUTROPHILS # (AUTO) 2.85 x10^3/uL (1.8-6.8); NEUTROPHILS % (AUTO) 58 % (42-75); PLATELET COUNT 212 x10^3/uL (130-400); RED BLOOD COUNT 4.19 x10^6/uL (4.38-5.82); RED CELL DISTRIBUTION WIDTH 14.3 % (9.4-14.8)
[2019-10-06 08:29] LABS: ALBUMIN 3.2 g/dL (3.4-5.0); ANION GAP 7 mmol/L (5-15); CALCIUM 8.5 mg/dL (8.5-10.1); CHLORIDE 109 mmol/L (98-107); CREATININE 1.14 mg/dL (0.7-1.3)
[2019-10-06 08:31] LABS: TROPONIN I < 0.015 ng/mL (0.000-0.045)
== END 2019-10-06 09:47 | disposition home or self-care (01) ==
LOC: ED 09:10
DX: G89.11 Acute pain due to trauma (principal); R07.89 Other chest pain; M54.6 Pain in thoracic spine; M54.5 Low back pain; Z72.9 Problem related to lifestyle, unspecified; J44.9 Chronic obstructive pulmonary disease, unspecified; E78.00 Pure hypercholesterolemia, unspecified; E78.5 Hyperlipidemia, unspecified; I11.9 Hypertensive heart disease without heart failure
CPT/HCPCS: 36415; 70450; 71045; 72072; 72110; 80048; 82040; 84484; 85025; 93005; 99285

== ENCOUNTER 2019-10-21 15:20 | Emergency (ER) | payer MEDICARE, MEDICAID ==
[~2019-10-21] VITALS: Ht 180.3 cm; Wt 96.0 kg
[2019-10-21 15:31] VITALS: BP 134/79
[2019-10-21 16:29] LABS: RAPID INFLUENZA A Negative (Negative); RAPID INFLUENZA B Negative (Negative)
== END 2019-10-21 17:40 | disposition home or self-care (01) ==
LOC: ED 15:32
DX: B34.9 Viral infection, unspecified (principal); E78.5 Hyperlipidemia, unspecified; F17.210 Nicotine dependence, cigarettes, uncomplicated
CPT/HCPCS: 71045; 87400; 99284

== ENCOUNTER 2019-10-24 16:12 | Emergency (ER) | payer MEDICARE, MEDICAID ==
[~2019-10-24] VITALS: Ht 180.3 cm; Wt 93.0 kg
--- NOTE | 2019-10-24 16:24 | NUR ---
PT BIB BY [facility] WITH C/O CP AND SHORTNESS OF BREATH XA WEEKS. PT STATES HE DID NOT ASK TO COME TO THE HOSPITAL BUT VERBALIZES HE "DON'T MIND [facility] YOUR ALL NICE HERE" PT HAS TWO PERVIOUS VISIT WRIST BANDS ON, TWO PERVIOUS RESP. MASK. PT CHANGED INTO HOSPITAL GOWN AND CONNECTED TO MONITORS.
--- NOTE | 2019-10-24 16:32 | NUR ---
PROVIDERS AT BEDSIDE
--- NOTE | 2019-10-24 16:44 | NUR ---
REPORT RECEIVED FROM MARY LEY. ASSUMING PRIMARY CARE OF PT.
[2019-10-24 17:15] LABS: ALBUMIN 3.4 g/dL (3.4-5.0); ANION GAP 8 mmol/L (5-15); CALCIUM 8.6 mg/dL (8.5-10.1); CHLORIDE 112 mmol/L (98-107); CREATININE 1.14 mg/dL (0.7-1.3)
[2019-10-24 17:17] LABS: BASOPHILS # (AUTO) 0.02 x10^3/uL (0-0.1); BASOPHILS % (AUTO) 0 % (0-1); EOSINOPHILS # (AUTO) 0.07 x10^3/uL (0-0.4); EOSINOPHILS % (AUTO) 1 % (1-7); LYMPHOCYTES # (AUTO) 1.57 x10^3/uL (1-3.4); LYMPHOCYTES % (AUTO) 27 % (22-44); MD NO; MEAN CORPUSCULAR HEMOGLOBIN 31.5 pg (27.5-34.5); MEAN CORPUSCULAR HGB CONC 32.9 g/dL (33.2-36.2); MEAN CORPUSCULAR VOLUME 95.8 fL (81-97); MONOCYTES # (AUTO) 0.51 x10^3/uL (0.2-0.8); MONOCYTES % (AUTO) 9 % (2-9); NEUTROPHILS # (AUTO) 3.62 x10^3/uL (1.8-6.8); NEUTROPHILS % (AUTO) 63 % (42-75); PLATELET COUNT 279 x10^3/uL (130-400); RED BLOOD COUNT 4.13 x10^6/uL (4.38-5.82); RED CELL DISTRIBUTION WIDTH 13.9 % (9.4-14.8)
[2019-10-24 17:18] LABS: TROPONIN I < 0.015 ng/mL (0.000-0.045)
[2019-10-24 17:46] VITALS: BP 157/92
== END 2019-10-24 17:48 | disposition home or self-care (01) ==
LOC: ED 16:27
DX: J20.9 Acute bronchitis, unspecified (principal); G89.29 Other chronic pain; Z87.891 Personal history of nicotine dependence; E78.00 Pure hypercholesterolemia, unspecified; I11.0 Hypertensive heart disease with heart failure; I50.9 Heart failure, unspecified
CPT/HCPCS: 36415; 71045; 80048; 82040; 83880; 84484; 85025; 93005; 99285

== ENCOUNTER 2019-11-13 16:05 | Emergency (ER) | payer MEDICARE, MEDICAID ==
[~2019-11-13] VITALS: Ht 180.3 cm; Wt 95.0 kg
--- NOTE | 2019-11-13 16:39 | NUR ---
THIS IS A 69 YO MALE WHO PRESENTS TO THE ER C/O ONSET OF SOB, CP, NAUSEA AND WEAKNESS X 4 HOURS. PT RATES CP AT 8/10 AND DESCRIBES "SHARP". PT REPORTS PAIN IS WORSE WITH DEEP BREATHING. PT ABLE TO MOVE ALL EXTREMITIES W/O DIFFICULTY. PT NSR 70'S ON CPA TAX. PT DENIES COUGH AT THIS TIME. REPORTS HE HAD NEGATIVE CO-VID TEST APPROX 2 WEEKS AGO. PT REQUESTED AND WAS PROVIDED WITH URINAL, WARM BLANKETS, BEAR HUGGER, AND REMOTE. PT ON CONT BP, CARDIAC AND O2 MONITORS. CALL LIGHT WITHIN REACH. WILL CONT TO MONITOR PT.
[2019-11-13 16:42] LABS: BASOPHILS # (AUTO) 0.02 x10^3/uL (0-0.1); BASOPHILS % (AUTO) 0 % (0-1); EOSINOPHILS # (AUTO) 0.08 x10^3/uL (0-0.4); EOSINOPHILS % (AUTO) 2 % (1-7); LYMPHOCYTES % (AUTO) 28 % (22-44); MD NO; MEAN CORPUSCULAR HGB CONC 32.9 g/dL (33.2-36.2); MEAN CORPUSCULAR VOLUME 94.3 fL (81-97); MONOCYTES # (AUTO) 0.47 x10^3/uL (0.2-0.8); MONOCYTES % (AUTO) 9 % (2-9); NEUTROPHILS # (AUTO) 3.11 x10^3/uL (1.8-6.8); NEUTROPHILS % (AUTO) 61 % (42-75); PLATELET COUNT 256 x10^3/uL (130-400); RED BLOOD COUNT 3.97 x10^6/uL (4.38-5.82); RED CELL DISTRIBUTION WIDTH 14.1 % (9.4-14.8)
[2019-11-13 16:54] LABS: ALANINE AMINOTRANSFERASE 25 U/L (12-78); ALBUMIN 3.2 g/dL (3.4-5.0); ANION GAP 6 mmol/L (5-15); CALCIUM 8.4 mg/dL (8.5-10.1); CHLORIDE 112 mmol/L (98-107); CREATININE 1.23 mg/dL (0.7-1.3)
[2019-11-13 16:58] LABS: ALKALINE PHOSPHATASE 118 U/L (45-117); BILIRUBIN,TOTAL 0.4 mg/dL (0.2-1.0); TOTAL PROTEIN 7.1 g/dL (6.4-8.2); TROPONIN I < 0.015 ng/mL (0.000-0.045)
[2019-11-13] MEDS ORDERED: ASPIRIN 325 MG TABLET PO ONE (17:00)
[2019-11-13] MEDS ORDERED: ASPIRIN 325 MG TABLET ONE (17:19)
--- NOTE | 2019-11-13 17:24 | NUR ---
BREAK RN: PT MED NOTED. PT REQUESTING HIS ATENOLOL, POTASSIUM, AND AMLODIPINE. ER PA INFORMED
[2019-11-13] MEDS ORDERED: POTASSIUM CHLORIDE 10 MEQ TABLET.ER PO ONE (17:30)
[2019-11-13] MEDS ORDERED: ATENOLOL 50 MG TABLET PO ONE (17:30)
[2019-11-13] MEDS ORDERED: AMLODIPINE 5 MG TABLET PO ONE (17:30)
--- NOTE | 2019-11-13 17:36 | NUR ---
MEDS NOT IN ED RESP OMNICELL, MEDS REQUESTED.
[2019-11-13 18:22] VITALS: BP 161/89
== END 2019-11-13 18:24 | disposition home or self-care (01) ==
LOC: ED 16:26
DX: R07.2 Precordial pain (principal); E87.6 Hypokalemia; J44.9 Chronic obstructive pulmonary disease, unspecified; I11.0 Hypertensive heart disease with heart failure; I50.9 Heart failure, unspecified; E78.5 Hyperlipidemia, unspecified; E78.00 Pure hypercholesterolemia, unspecified; Z76.0 Encounter for issue of repeat prescription
CPT/HCPCS: 36415; 71045; 80053; 84484; 85025; 93005; 99285

== ENCOUNTER 2019-12-29 21:08 | Emergency (ER) | payer MEDICARE, MEDICAID ==
[~2019-12-29] VITALS: Ht 180.3 cm; Wt 93.0 kg
[~2019-12-29 21:08] MED LIST changes: +ACET325T26 PO; +ALPR0.25 PO; +ATOR40TA78 PO; +AZIT500T10 PO; +MELA5TAB14 PO; +NYST15CR TP; -NYST15CR33 TP; +POLY17PO5 PO; +TRAM50TA2 PO
[2019-12-29 21:16] VITALS: BP 147/95
--- NOTE | 2019-12-29 21:24 | NUR ---
PT BIB EMS FOR SOB AND CP INTERMITTENT SINCE BEING DCd FROM HERE 1.5WKS AGO. PT STS WAS NOW PICKING UP SCRIPTS. CONNECTED TO ALL MONITORING, VSS AT THIS TIME. PT BREATHING HEAVY BUT SATS ABOVE 95% ON RA. MD TO BEDSIDE. AWAITING ORDERS AT THIS TIME. CALL LIGHT WITHIN REACH
[2019-12-29 21:47] LABS: BASOPHILS # (AUTO) 0.02 x10^3/uL (0-0.1); BASOPHILS % (AUTO) 1 % (0-1); EOSINOPHILS # (AUTO) 0.08 x10^3/uL (0-0.4); EOSINOPHILS % (AUTO) 2 % (1-7); LYMPHOCYTES # (AUTO) 1.55 x10^3/uL (1-3.4); LYMPHOCYTES % (AUTO) 33 % (22-44); MD NO; MEAN CORPUSCULAR HGB CONC 33.1 g/dL (33.2-36.2); MEAN CORPUSCULAR VOLUME 93.6 fL (81-97); MEAN PLATELET VOLUME 8.1 fL (7.4-10.4); MONOCYTES # (AUTO) 0.39 x10^3/uL (0.2-0.8); MONOCYTES % (AUTO) 8 % (2-9); NEUTROPHILS # (AUTO) 2.65 x10^3/uL (1.8-6.8); NEUTROPHILS % (AUTO) 57 % (42-75); PLATELET COUNT 232 x10^3/uL (130-400); RED BLOOD COUNT 4.36 x10^6/uL (4.38-5.82); RED CELL DISTRIBUTION WIDTH 14.7 % (9.4-14.8)
[2019-12-29 21:53] LABS: ALBUMIN 3.6 g/dL (3.4-5.0); ANION GAP 6 mmol/L (5-15); CHLORIDE 110 mmol/L (98-107); CREATININE 0.96 mg/dL (0.7-1.3)
[2019-12-29 21:57] LABS: TROPONIN I < 0.015 ng/mL (0.000-0.045)
--- NOTE | 2019-12-29 22:03 | NUR ---
ALL RESULTS BACK AT THIS TIME, CHART UP FOR RECHECK
--- NOTE | 2019-12-29 22:45 | NUR ---
TASK RN: PT GIVEN DC INSTRUCTIONS, CONFIRMS UNDERSTANDING, MD UPDATED THAT PT REQ MORE MEDS FOR DC, STS TO FOLLOW UP WITH PRIMARY
== END 2019-12-29 22:47 | disposition home or self-care (01) ==
LOC: ED 22:29
DX: J44.9 Chronic obstructive pulmonary disease, unspecified (principal); R07.9 Chest pain, unspecified; I11.0 Hypertensive heart disease with heart failure; I50.9 Heart failure, unspecified; E78.5 Hyperlipidemia, unspecified; E78.00 Pure hypercholesterolemia, unspecified; Z87.891 Personal history of nicotine dependence
CPT/HCPCS: 36415; 71045; 80048; 82040; 84484; 85025; 93005; 99285